=== PATIENT | male | born 1985 | race Caucasian/White ===

== ENCOUNTER 2019-02-13 10:31 | Emergency (ER) | payer OTHER, SELFPAY ==
[2019-02-13 11:03] VITALS: BP 136/89; PULSE 71; RESP 16; TEMP 36.7; O2SAT 98
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
--- NOTE | 2019-02-13 13:32 | DI.VRAD_ITS ---
EXAM: XR Left Shoulder EXAM DATE/TIME: 02/13/2019 11:19 AM CLINICAL HISTORY: 33 years old, male; Pain; Shoulder; Left TECHNIQUE: Imaging protocol: XR Left shoulder. Views: 2 or more views. COMPARISON: No relevant prior studies available. FINDINGS: Bones/joints: Normal. Soft tissues: Normal. IMPRESSION: No evidence for acute abnormality. COMMENT: Preliminary interpretation is based on receipt of 5 image(s). A final report will be issued subsequently. Dictated and Authenticated by: Roro Duque MD. Ordering:LAMIN Calhoun MD
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
== END 2019-02-13 14:00 | disposition home or self-care (01) ==
PROVIDERS: Emergency Provider Student in an Organized Health Care Education/Training Program; PCP Family Medicine
DX: S43.402A Unspecified sprain of left shoulder joint, initial encounter (principal); V11.0XXA Pedal cycle driver injured in collision with other pedal cycle in nontraffic accident, initial encounter
CPT/HCPCS: 99283; 73030; 99282

== ENCOUNTER 2020-04-20 14:53 | Emergency (ER) | payer MEDICAID, SELFPAY ==
[2020-04-20 14:56] VITALS: BP 141/98; PULSE 82; TEMP 36.9; O2SAT 97
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
[2020-04-20] MEDS: Ibuprofen 600 MG TAB PO (15:43)
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
== END 2020-04-20 17:08 | disposition home or self-care (01) ==
PROVIDERS: Emergency Provider Physician Assistant; PCP Family Medicine
DX: S20.221A Contusion of right back wall of thorax, initial encounter (principal); V18.0XXA Pedal cycle driver injured in noncollision transport accident in nontraffic accident, initial encounter; Y93.55 Activity, bike riding; R91.1 Solitary pulmonary nodule
CPT/HCPCS: 71250; 99284; L3650

== ENCOUNTER 2020-08-17 12:54 | Emergency (ER) | payer MEDICAID, SELFPAY ==
[2020-08-17 13:00] VITALS: BP 148/90; PULSE 84; RESP 16; TEMP 36.6; O2SAT 97
--- NOTE | 2020-08-17 13:00 | DI.RAD_ITS ---
EXAM: XR WRIST LT COMP NAVICULAR CLINICAL HISTORY: L thumb palmar pain. TECHNIQUE: 2D digital imaging was performed. Four views including navicular view were performed. COMPARISON: No exams were available for comparison FINDINGS: BONES: No acute fracture is present. No bony destructive lesion is seen. JOINTS: The carpal bones are normally aligned. SOFT TISSUE: Normal. IMPRESSION: Unremarkable radiographs of the left wrist. DATA REPOSITORY: RADIATION DOSE DELIVERED:
--- NOTE | 2020-08-17 13:11 | W.ED.GENAD ---
Discharge Plan Discharge Details Chief Complaint: Orthopedic Primary Care Provider: Yamileth Valles ED Provider: Lorenzo Sexton Home Meds and New Rx's Prescriptions: No Action ibuprofen 800 MG tablet 800 mg PO Q8H PRNQty: 90 RF: 0 Medical Decision Making 35-year-old male presents after striking a tree with his free left hand while snowboarding yesterday. He developed palmar base of the left thumb swelling overnight that did respond to ice. 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 Given pain in the anatomical snuffbox and with axial loading of the thumb, patient is referred for radiographs of the hand including navicular views. No evidence of bony fracture seen. Must exclude a subtle underlying scaphoid injury and therefore we have placed him in a thumb spica with follow-up in 1 week's time. He understands homecare and return precautions. HPI General Mode of arrival: ambulatory. Date/Time Provider Initiated Documentation: 08/17/20 12:59. Limitations to Documentation: no limitations. Information obtained by: patient. History of Present Illness 35 year old M presents to the emergency department with the chief complaint of Left hand pain after striking a tree, described as moderate, Quality is described as dull, and is localized to the left and upper extremity. Patient reports no radiation. Patient started experiencing this hour(s) and it has been constant. No relieving factors improve symptom(s), No exacerbating factors reported . Patient did receive the following treatments prior to arrival, other (Cold therapy) Related Data Home Medications Medication Instructions Recorded Confirmed ibuprofen 800 mg PO Q8H PRN #90 tab 01/28/17 04/20/20 Allergies Allergy/AdvReac Type Severity Reaction Status Date / Time tramadol AdvReac Severe seizures Unverified 04/20/20 15:09 clarithromycin [From Biaxin] AdvReac Mild Unverified 04/20/20 15:09 diclofenac AdvReac Mild Unverified 04/20/20 15:09 General Stated Complaint: Orthopedic MAURICIO: 4 Review of Systems Narrative: GEN: awake, alert, oriented 3. Pleasant, well groomed, interactive. HEAD: Normocephalic, atraumatic ENT: No neck mass, external ear exam unremarkable EYES: PERRL, EOMI EXT: Range of motion intact bilaterally but limited by pain left keno writer / runner strength. Base of left thumb tender to palpation. Pain with resisted supination, pain with axial loading of the thumb. Neuro: Grossly normal neurologic exam, conversant, interactive. Psych: Speech fluent, thoughts congruent, affect normal [facility] Medical History (Updated 05/21/20 @ 00:01 by REINA PRETTY) Separation of left acromioclavicular joint, type 1 (02/12/19) Surgical History (Updated 04/22/18 @ 14:37 by [employer] MD) Fracture, Open Treatment tib fib Tonsillectomy Vasectomy Has also had three procedures since. Social History Smoking/Tobacco Use Status: Former Tobacco Use Smoking risk assessment performed?: Yes Alcohol Intake: current Alcohol Intake frequency: holidays/special occasions only Drug use: Occasionally Substance use type: marijuana Current gender identity: male Do you feel safe at home: Yes Do you feel safe in your relationship?: Yes Course Vital Signs Vital signs: Vital Signs Temperature 36.6 C 08/17/20 13:00 Pulse 84 08/17/20 13:00 Respiratory Rate 16 08/17/20 13:00 Blood Pressure 148/90 H 08/17/20 13:00 Pulse Oximetry 97 08/17/20 13:00 Temperature 36.6 C 08/17/20 13:00 Temperature Source Temporal Artery Scan 08/17/20 13:00 Pulse 84 08/17/20 13:00 Respiratory Rate 16 08/17/20 13:00 Respiratory Effort Non-Labored 08/17/20 13:06 Blood Pressure 148/90 H 08/17/20 13:00 Blood Pressure Position Sitting 08/17/20 13:00 Pulse Oximetry 97 08/17/20 13:00 Oxygen Delivery Method Room Air 08/17/20 13:00 Oxygen Flow Rate 0 08/17/20 13:00 Pain Level 7 08/17/20 13:07
== END 2020-08-17 13:50 | disposition home or self-care (01) ==
PROVIDERS: Emergency Provider Emergency Medicine; PCP Family Medicine
DX: S60.012A Contusion of left thumb without damage to nail, initial encounter (principal); V00.312A Snowboarder colliding with stationary object, initial encounter; Y93.23 Activity, snow (alpine) (downhill) skiing, snowboarding, sledding, tobogganing and snow tubing
CPT/HCPCS: 29125; 99283; 73110; 99281

== ENCOUNTER 2020-11-19 10:40 | Emergency (ER) | payer MEDICAID, SELFPAY ==
[2020-11-19] VITALS (35 sets, daily range): BP systolic 121–140; BP diastolic 78–112; PULSE 56–107; RESP 10–22; TEMP 36.5; O2SAT 96–100
--- NOTE | 2020-11-19 10:30 | RT.EKG_ITS ---
APPROVED REPORT Exam: Resting ECG Reason for Exam: dizzy,nausea Patient Location: E HR:74 bpm ECG Measurements Heart Rate 74 AXIS HI 109 P 55 QRSd 95 QRS 54 QT 360 T 64 QTc 400 Conclusion Sinus rhythm...normal P axis, V-rate 60- 99
--- NOTE | 2020-11-19 10:49 | ED.GENADUL_ITS ---
Discharge Plan Disposition Patient Disposition: HOME Condition: Stable Discharge Details Clinical Impression: Nausea, Dizziness Primary Care Provider: Yamileth Valles ED Provider: Dereck Lilly Home Meds and New Rx's Prescriptions: New ondansetron HCl [Zofran] 4 mg tablet 4 mg PO Q8H PRNQty: 10 RF: 0 meclizine 25 mg tablet 25 mg PO TID PRN (Reason: dizziness) Qty: 14 RF: 0 Continued ibuprofen 800 MG tablet 800 mg PO Q8H PRNQty: 90 RF: 0 Discharge Instructions Instructions: Acute Nausea and Vomiting (ED), Dizziness (ED) Additional Instructions: Work-up in the ER has been unremarkable for any obvious emergent process and you have responded nicely to both Zofran and meclizine. Zofran and meclizine is being prescribed to you, take as directed. Rest, plenty of fluids to avoid dehydration. Please watch for new or worsening symptoms and return to the ER for any concerns. Lastly, I do recommend that you reach out to your primary care provider tomorrow to discuss your ongoing symptoms, ER evaluation, and need for outpatient reevaluation. Medical Decision Making This is a 35-year-old male, denies significant past sickle history, presenting to the ER today with various complaints. Clinically he appears well, nontoxic is neurologically intact. He does state that he hit himself in the head using a pry bar approximately 1 month ago, and has felt ill for the last 9 days after receiving the J&J Covid vaccination. Differential this point is wide but given his dizziness, headache, etc., I do believe obtaining CT imaging of his head, neck, CTA, for further evaluation of potential central venous thrombosis is re asonable. In the meantime will obtain IV access, routine laboratory values, single troponin, EKG, chest x-ray. Will give IV fluid, IV Zofran, and 25 p.o. meclizine and reassess. No evidence of dental infection or abscess, no clear indication for antibiotic Laboratory values are all unremarkable for obvious emergent process. Upon reevaluation patient is resting comfortably, remains neurologically intact. Was witnessed ambulating steadily to the restroom multiple times. He reports that both his nausea and dizziness are dramatically improved but not resolved. Will p.o. challenge. Awaiting imaging Chest x-ray, CTA brain and neck are read by radiology as negative Discussed laboratory values and imaging with patient. He is relieved. Reports that his nausea and dizziness continue improved but have not resolved completely. He was able to eat a turkey sandwich without difficulty. At this point patient has no additional questions or concerns and he is comfortable discharge. I will provide a prescription for meclizine and Zofran. He was encouraged to return to the ER for new or worsening symptoms. Lastly he will contact his primary care provider tomorrow to discuss his ongoing symptoms, and if they persist potential need for outpatient MRI and/or referral to neurology. Medical Records Medical records reviewed: Yes I reviewed the patient's medical records. Lab Data Lab results reviewed: Yes I reviewed the patient's lab results. Labs: Laboratory Tests Range/Units 11/19/20 11/19/20 11/19/20 10:57 10:57 10:57 WBC (4.4-10.8) 10^3/uL 8.92 RBC (4.36-5.78) 10^6/uL 5.22 Hgb (13.5-17.5) g/dL 16.7 Hct (40.0-50.0) % 48.9 MCV (80-95) fL 93.7 MCH (27.0-33.0) pg 32.0 MCHC (32.0-36.0) % 34.2 RDW (11.8-14.1) % 12.5 Plt Count (130-400) 10^3/uL 311 MPV (8.0-11.0) fL 9.9 Immature Gran % 0.4 Neutrophils % 56.8 Lymphocytes % 30.6 Monocytes % 8.7 Eosinophils % 2.9 Basophils % 0.6 Nucleated RBC % % 0 Absolute Neutrophils (1.2-6.7) 10^3/uL 5.06 Absolute Lymphocytes (1.2-3.4) 10^3/uL 2.73 Absolute Monocytes (0.1-0.8) 10^3/uL 0.78 Absolute Eosinophils (0.0-0.7) 10^3/uL 0.26 Absolute Basophils (0.0-0.2) 10^3/uL 0.05 PT (9.3-11.0) sec 10.5 INR (0.9-1.1) 1.0 APTT (21.0-27.5) sec 24.4 Sodium (136-145) mmol/L 140 Potassium (3.5-5.1) mmol/L 4.1 Chloride (98-107) mmol/L 104 Carbon Dioxide (21.0-32.0) mmol/L 25.8 Anion Gap (3-11) mmol/L 10.2 BUN (7-18) mg/dL 19 H Creatinine (0.70-1.30) mg/dL 1.2 Estimated GFR/1.73 m2 (mL/min/1.73m2) >= 60.00 Glucose (74-106) mg/dL 111 H Calcium (8.5-10.1) mg/dL 9.4 Magnesium (1.8-2.4) mg/dL 1.8 Total Bilirubin (0.2-1.0) mg/dL 0.6 AST (15-37) U/L 19 ALT (16-63) U/L 37 Alkaline Phosphatase (46-116) U/L 78 Troponin I (<0.06) ng/mL < 0.05 Total Protein (6.4-8.2) g/dL 8.2 Albumin (3.4-5.0) g/dL 4.2 TSH (0.36-3.74) uIU/mL 1.29 Urine Color (Yellow) Urine Clarity (Clear) Urine pH (5-8) Ur Specific Dougherty (1.005-1.025) Urine Protein (Negative) mg/dL Urine Ketones (Negative) mg/dL Urine Blood (Negative) Urine Nitrite (Negative) Urine Bilirubin (Negative) Urine Urobilinogen (Up TO 0.2) EU/dL Ur Leukocyte Esterase (Negative) Urine Glucose (Negative) mg/dL Urine Opiates Screen (Negative) Urine Methadone Screen (Negative) Ur Barbiturates Screen (Negative) Ur Tricyclics Screen (Negative) Ur Amphetamines Screen (Negative) U Benzodiazepines Scrn (Negative) Urine Cocaine Screen (Negative) Ur THC Screen (Negative) Range/Units 11/19/20 11/19/20 11:50 11:50 WBC (4.4-10.8) 10^3/uL RBC (4.36-5.78) 10^6/uL Hgb (13.5-17.5) g/dL Hct (40.0-50.0) % MCV (80-95) fL MCH (27.0-33.0) pg MCHC (32.0-36.0) % RDW (11.8-14.1) % Plt Count (130-400) 10^3/uL MPV (8.0-11.0) fL Immature Gran % Neutrophils % Lymphocytes % Monocytes % Eosinophils % Basophils % Nucleated RBC % % Absolute Neutrophils (1.2-6.7) 10^3/uL Absolute Lymphocytes (1.2-3.4) 10^3/uL Absolute Monocytes (0.1-0.8) 10^3/uL Absolute Eosinophils (0.0-0.7) 10^3/uL Absolute Basophils (0.0-0.2) 10^3/uL PT (9.3-11.0) sec INR (0.9-1.1) APTT (21.0-27.5) sec Sodium (136-145) mmol/L Potassium (3.5-5.1) mmol/L Chloride (98-107) mmol/L Carbon Dioxide (21.0-32.0) mmol/L Anion Gap (3-11) mmol/L BUN (7-18) mg/dL Creatinine (0.70-1.30) mg/dL Estimated GFR/1.73 m2 (mL/min/1.73m2) Glucose (74-106) mg/dL Calcium (8.5-10.1) mg/dL Magnesium (1.8-2.4) mg/dL Total Bilirubin (0.2-1.0) mg/dL AST (15-37) U/L ALT (16-63) U/L Alkaline Phosphatase (46-116) U/L Troponin I (<0.06) ng/mL Total Protein (6.4-8.2) g/dL Albumin (3.4-5.0) g/dL TSH (0.36-3.74) uIU/mL Urine Color (Yellow) Yellow Urine Clarity (Clear) Clear Urine pH (5-8) 6.0 Ur Specific Dougherty (1.005-1.025) 1.015 Urine Protein (Negative) mg/dL Negative Urine Ketones (Negative) mg/dL Negative Urine Blood (Negative) Negative Urine Nitrite (Negative) Negative Urine Bilirubin (Negative) Negative Urine Urobilinogen (Up TO 0.2) EU/dL 0.2 Ur Leukocyte Esterase (Negative) Negative Urine Glucose (Negative) mg/dL Negative Urine Opiates Screen (Negative) Negative Urine Methadone Screen (Negative) Negative Ur Barbiturates Screen (Negative) Negative Ur Tricyclics Screen (Negative) Negative Ur Amphetamines Screen (Negative) Negative U Benzodiazepines Scrn (Negative) Negative Urine Cocaine Screen (Negative) Negative Ur THC Screen (Negative) Positive A ECG Data Attestation: I personally reviewed and interpreted this ECG (s) as follows: Interpretation: Please see official report by Dr. Sexton. Sinus rhythm, ventricular rate 74. No STEMI. HPI General Mode of arrival: ambulatory . Date/Time Provider Initiated Documentation: 11/19/20 10:40 . Limitations to Documentation: no limitations . Information obtained by: patient . HPI Narrative: This is a 35-year-old male, denies significant past medical history presenting to the ER today with multiple. First he states that approximately 1 month ago he accidentally hit himself in the head with a pry bar, felt as though he likely had a concussion, symptoms lasted for approximately 3 days and then he was back to baseline. He never sought any medical attention. Subsequently 9 days ago he received the J&J Covid vaccination. He states that almost immediately after the vaccine he developed multiple symptoms. He states that in the past he had a reaction to the flu vaccine twice which he then decided never to get the flu vaccine again. He questions if his symptoms now could be a reaction to the vaccine versus his potential fear of reaction to the vaccine in potentially psychosomatic. He reports a dull global headache, occasional blurry vision, chronic neck discomfort from his scoliosis, fever 4 days ago, T-max between 101 101, abdominal cramping, nausea, vomiting, diarrhea, occasional paresthesias to his hands and feet. He reports dizziness, like the room is spinning, made worse with movement of his eyes or head. The dizziness has not made him fall. He states that he feels more forgetful than usual. He denies cough, shortness of breath, dysuria, pain or swelling in his legs. He states that he also has a chronic tooth problem which has been bothering him lately in general. He states that he has taken [id number] Tylenol for his symptoms as well as drinking increased Gatorade. Because of his overall nausea and vomiting, he has had decreased p.o. intake and is concerned about dehydration. Related Data Home Medications Medication Instructions Recorded Confirmed ibuprofen 800 mg PO Q8H PRN #90 tab 01/28/11/19/20 meclizine 25 mg PO TID PRN #14 tab 11/19/20 ondansetron HCl [Zofran] 4 mg PO Q8H PRN #10 tab 11/19/20 Previous Rx's Medication Instructions Recorded meclizine 25 mg PO TID PRN #14 tab 11/19/20 ondansetron HCl [Zofran] 4 mg PO Q8H PRN #10 tab 11/19/20 Allergies Allergy/AdvReac Type Severity Reaction Status Date / Time tramadol AdvReac Severe seizures Unverified 11/19/20 10:51 clarithromycin [From Biaxin] AdvReac Mild Unverified 11/19/20 10:51 diclofenac AdvReac Mild Unverified 11/19/20 10:51 General MAURICIO: 4 Review of Systems Constitutional Constitutional: Reports fatigue, Reports fever(s), Reports headache(s) and Denies weakness Eyes Eyes: Reports blurry vision ENT Ears, Nose, Mouth, and Throat: Reports headache(s), Reports neck pain and Denies sore throat Cardiovascular Cardiovascular: Denies chest pain and Denies dyspnea Respiratory Respiratory: Denies cough and Denies dyspnea Gastrointestinal Gastrointestinal: Reports abdominal pain, Reports constipation, Reports diarrhea, Reports nausea and Reports vomiting Genitourinary Genitourinary: Denies dysuria Musculoskeletal Musculoskeletal: Denies arthralgias, Reports neck pain, Denies numbness and Reports tingling Integumentary/Breasts Skin/Breast: Denies rash Neurologic Neurologic: Reports headache(s), Denies numbness, Reports tingling and Denies weakness Endocrine Endocrine: Reports fatigue Hematologic/Lymphatic Hematologic/Lymphatic: Denies easy bleeding and Denies easy bruising [facility] Medical History Separation of left acromioclavicular joint, type 1 (02/12/19) Surgical History Fracture, Open Treatment tib fib Tonsillectomy Vasectomy Has also had three procedures since. Social History Smoking/Tobacco Use Status: Former Tobacco Use Smoking risk assessment performed?: Yes Alcohol Intake: current Alcohol Intake frequency: holidays/special occasions only Drug use: Daily Substance use type: marijuana Current gender identity: male Do you feel safe at home: Yes Do you feel safe in your relationship?: Yes Exam Const General: cooperative, healthy appearing, comfortable and no acute distress Orientation: alert, awake and oriented x3 HENMT Head: normal to inspection, normocephalic and atraumatic Ears: external ears normal, TM's normal bilaterally and EAC's normal Face and sinus: normal facial exam Mouth: moist mucous membranes Throat: posterior oropharynx normal Eyes General: appearance normal, both eyes and all related structures Alignment and Position: alignment normal Periorbital: periorbital findings normal Eyelids: eyelids normal Conjunctivae: conjunctivae normal Sclera: sclerae normal Cornea: corneas normal Pupils: PERRL EOM: EOM intact bilaterally Direct ophthalmoscopy: normal light reflex Neck Neck: normal visual inspection, full ROM, no meningeal signs, trachea midline, supple and nontender Resp Effort & Inspection: normal respiratory effort and able to speak in complete sentences Auscultation: clear to auscultation bilaterally Cardio Rate: regular rate Rhythm: regular rhythm GI Inspection: normal to inspection Palpation: soft, not firm, no guarding, no pulsatile masses and nontender Auscultation: normal bowel sounds Back/Spine/Pelvis Back: No back tenderness Skin General skin exam: no rashes or lesions noted Neuro General: patient alert, patient awake, patient oriented x3, moves all e xtremities and no focal motor deficits Cranial Nerves: CN's II-XI intact bilaterally Cognition: normal cognition Speech: speech normal Gait: normal gait Motor: muscle tone normal throughout, strength 5/5 throughout, no movement abnormalities noted and no fasciculations Sensory Exam: no sensory deficits noted Coordination: Does not sway with eyes open Extrem General: normal to inspection, full ROM, capillary refill normal, no pedal edema and no calf tenderness Psych Appearance: grossly normal Mental Status: mental status grossly normal
[2020-11-19] MEDS: Normal Saline 1,000 ML 1000 ML IV (11:00)
--- NOTE | 2020-11-19 11:15 | DI.CT_ITS ---
Exam(s) CT BRAIN NECK CTA EXAM: CT BRAIN NECK CTA CLINICAL HISTORY: PARK/Dizzy, after covid vaccine. TECHNIQUE: Imaging Protocol: Axial CT angiography was performed with multi-slice acquisition and mu lti-planar and/or 3D reconstructions. CONTRAST MATERIAL: Intravenous: Omnipaque 350 Contrast volume:structured data in ml COMPARISON: No exams were available for comparison FINDINGS: CTA Neck W: Aortic arch anatomy: The aortic arch anatomy is conventional. Anterior circulation: Common carotid arteries are nicely patent with no evidence of significant stenosis nor obvious plaque in these vessels. Also no evidence of significant plaque at the carotid bifurcation and proximal in ternal carotid arteries on either side. Both internal carotid arteries exhibit normal diameters in t he neck and skull base-carotid canals. Posterior circulation: And both vertebral arteries originated conventional fashion off of the subclavian arteries and both v ertebral arteries exhibit normal and equal diameters in the foramen transversarium with no evidence o f intraluminal thrombus nor dissection. Both vertebral arteries contribute to the formation of the b asilar artery at the skull base. CTA Brain W: Anterior circulation: Both internal carotid arteries exhibit normal luminal diameters in the skull base-carotid canals as w ell as within the cavernous sinuses and the supraclinoid aspects of these vessels are patent and raina neurysmal. Both middle cerebral arteries are patent and demonstrated to be patent out to the sylvian fissure branches. No intraluminal thrombus nor aneurysm is evident. Both A1 segments are patent as are both anterior cerebral arteries. There is no evidence of aneurysm at the level of the anterior communicating artery. Posterior circulation: Basilar artery is formed the skull base by contribution from equal sized bilateral vertebral arteries . Basilar artery is sends in the midline with normal luminal diameter and distally gives off patent bilateral superior cerebellar arteries. Above this level basilar artery terminates as patent posteri or cerebral arteries.. There is no evidence of aneurysm of the tip of the basilar artery nor elsewhe re in the [id number]. CT BRAIN: There is no evidence of intracranial hemorrhage, mass effect, or shift of midline structures. There are no extra-axial fluid collections. Ventricles are not enlarged or shifted and there is no blood w ithin the ventricular system nor within the basal cisterns. There are no ring enhancing lesions in t he brain and no abnormal meningeal enhancement. IMPRESSION: 1. No evidence of significant atherosclerotic disease in the carotid arteries in the neck. No signif icant stenosis. Vertebral arteries are also patent. 2. Patent intracranial vessels. No intraluminal thrombus. No aneurysms evident. 3. There are no ring enhancing lesions in the brain nor abnormal meningeal enhancement. RADIATION DOSE DELIVERED: 1,856.64mGy.cm Total DLP DATA REPOSITORY: All CT scans at this facility are submitted to the National Radiology Data Registry (NRDR) Dose Index Registry (DIR) with the [employer] ([employer]). RADIATION OPTIMIZATION: All CT scans at this facility use at least one of these dose optimization te chniques: automated exposure control; mA and/or kV adjustment per patient size (includes targeted exa ms where dose is matched to clinical indication); or iterative reconstruction.
--- NOTE | 2020-11-19 11:15 | DI.RAD_ITS ---
Exam(s) XR CHEST 2V PA LATERAL EXAM: XR CHEST 2V PA LATERAL CLINICAL HISTORY: dizzy. TECHNIQUE: 2D digital imaging was performed. COMPARISON: CR CHEST 2 VIEWS PA,LAT from 03/19/2015 FINDINGS: Heart size is normal. The mediastinum is not widened. Some hyperinflation is again noted but there are no new infiltrates nor pleural effusions. No pulmon pacheco edema. Thoracolumbar scoliosis is again noted. IMPRESSION: No acute pulmonary findings.No significant change compared to March 2015. DATA REPOSITORY: RADIATION DOSE DELIVERED:
[2020-11-19 11:25] LABS: Abs Immature Grans 0.04 10^3/uL (0.0-0.06); Absolute Basophil Count 0.05 10^3/uL (0.0-0.2); Absolute Eosinophil Count 0.26 10^3/uL (0.0-0.7); Absolute Lymphocyte Count 2.73 10^3/uL (1.2-3.4); Absolute Monocyte Count 0.78 10^3/uL (0.1-0.8); Absolute Neutrophil Count 5.06 10^3/uL (1.2-6.7); Basophils % 0.6; Eosinophils % 2.9; HCT 48.9 % (40.0-50.0); HGB 16.7 g/dL (13.5-17.5); Immature Grans % 0.4; Lymphocytes % 30.6; MCHC 34.2 % (32.0-36.0); MCV 93.7 fL (80-95); MPV 9.9 fL (8.0-11.0); Monocytes % 8.7; Neutrophils % 56.8; Nucleated RBC 0 %; Platelet Count 311 10^3/uL (130-400); RBC 5.22 10^6/uL (4.36-5.78); RDW 12.5 % (11.8-14.1); RDW-SD 43.2 fL; WBC 8.92 10^3/uL (4.4-10.8)
[2020-11-19] MEDS: Meclizine 25 MG TAB PO (11:27)
[2020-11-19] MEDS: Ondansetron 4 MG/2 ML VIAL IVP (11:27)
[2020-11-19 11:39] LABS: PTT Activated 24.4 sec (21.0-27.5); Prothrombin Time 10.5 sec (9.3-11.0)
[2020-11-19 11:46] LABS: ALT 37 U/L (16-63); AST 19 U/L (15-37); Albumin 4.2 g/dL (3.4-5.0); Alkaline Phosphatase 78 U/L (46-116); Anion Gap 10.2 mmol/L (3-11); BUN 19 mg/dL (7-18); Bilirubin, Total 0.6 mg/dL (0.2-1.0); CO2 25.8 mmol/L (21.0-32.0); CREATININE 1.2 mg/dL (0.70-1.30); Calcium 9.4 mg/dL (8.5-10.1); Chloride 104 mmol/L (98-107); Glucose 111 mg/dL (74-106); Magnesium 1.8 mg/dL (1.8-2.4); Potassium 4.1 mmol/L (3.5-5.1); Sodium 140 mmol/L (136-145); TSH 1.29 uIU/mL (0.36-3.74); Total Protein 8.2 g/dL (6.4-8.2)
[2020-11-19 11:47] LABS: Troponin I < 0.05 ng/mL (<0.06)
[2020-11-19 12:06] LABS: Bilirubin Negative (Negative); Blood Negative (Negative); Clarity Clear (Clear); Glucose Negative (Negative); Ketones Negative (Negative); Leukocyte Esterase Negative (Negative); Nitrite Negative (Negative); Specific Gravity 1.015 (1.005-1.025); Urobilinogen 0.2 EU/dL (Up TO 0.2)
[2020-11-19 12:22] LABS: *AMPHETAMINES SCREEN URINE Negative (Negative); *BARBITURATES SCREEN URINE Negative (Negative); *BENZODIAZEPINES SCREEN URINE Negative (Negative); Cannabinoids THC Positive (Negative); Cocaine Screen,Urine Negative (Negative); METHADONE URINE SCREEN Negative (Negative); OPIATES URINE SCREEN Negative (Negative); Tricyclic Antidepressants Negative (Negative)
[2020-11-19] MEDS: Omnipaque 350 MG/ML 100 ML BTL IV (12:32)
[2020-11-19] MEDS: Normal Saline - Diluent 50 ML VIAL IV (12:33)
[2020-11-19] MEDS: Normal Saline Flush 10 ML SYR IVP (12:34)
--- NOTE | 2020-11-19 13:38 | DI.VRAD_ITS ---
PROCEDURE INFORMATION: Exam: XR Chest Exam date and time: 11/19/2020 12:42 PM Age: 35 years old Clinical indication: Other: Recent j\T\j vaccine - dizziness TECHNIQUE: Imaging protocol: XR of the chest. Views: 2 views. COMPARISON: CT CHEST WO 04/20/2020 3:59 PM FINDINGS: Lungs: Unremarkable. No consolidation. Pleural spaces: Unremarkable. No pleural effusion. No pneumothorax. Heart/Mediastinum: Unremarkable. No cardiomegaly. Bones/joints: Unremarkable. IMPRESSION: No acute findings. Dictated and Authenticated by: Guy Aleman MD. Ordering:JOEL Harden MD
--- NOTE | 2020-11-19 13:38 | DI.VRAD_ITS ---
PROCEDURE INFORMATION: Exam: CT Angiography Head With Contrast, Arteriography Exam date and time: 11/19/2020 11:18 AM Age: 35 years old Clinical indication: Dizziness and giddiness; Patient HX: PT received j\T\j vaccine on 11/10. C/O dizziness and PARK. TECHNIQUE: Imaging protocol: Computed tomography angiography of the head with contrast. Exam focused on the arteries. 3D rendering (Not supervised by radiologist): MIP and/or 3D reconstructed images were created by the technologist. Radiation optimization: All CT scans at this facility use at least one of these dose optimization techniques: automated exposure control; mA and/or kV adjustment per patient size (includes targeted exams where dose is matched to clinical indication); or iterative reconstruction. Contrast material: OMNIPAQUE 350; Contrast volume: 85 ml; Contrast route: INTRAVENOUS (IV); COMPARISON: CT HEAD WITH/WITHOUT CONTRAST 02/16/2016 10:50 AM FINDINGS: ANTERIOR CIRCULATION: Right internal carotid artery: Unremarkable. Intracranial segment is patent with no significant stenosis. No aneurysm. Right middle cerebral artery: Unremarkable. No occlusion or significant stenosis. No aneurysm. Right anterior cerebral artery: Unremarkable. No occlusion or significant stenosis. No aneurysm. Left internal carotid artery: Unremarkable. Intracranial segment is patent with no significant stenosis. No aneurysm. Left middle cerebral artery: Unremarkable. No occlusion or significant stenosis. No aneurysm. Left anterior cerebral artery: Unremarkable. No occlusion or significant stenosis. No aneurysm. POSTERIOR CIRCULATION: Right vertebral artery: Unremarkable. No occlusion or significant stenosis. No aneurysm. Left vertebral artery: Unremarkable. No occlusion or significant stenosis. No aneurysm. Basilar artery: Unremarkable. No occlusion or significant stenosis. No aneurysm. Right posterior cerebral artery: Unremarkable. No occlusion or significant stenosis. No aneurysm. There is prominent right posterior communicating artery. Left posterior cerebral artery: Unremarkable. No occlusion or significant stenosis. No aneurysm. Brain: No definite mass, mass effect, or midline shift. Cerebral ventricles: No ventriculomegaly. Paranasal sinuses: There is mucous retention cyst or polyp in the floor of the left maxillary sinus. There is trace mucosal thickening in the anterior right ethmoidal air cells. Bones/joints: Unremarkable. No acute fracture. Soft tissues: Unremarkable. IMPRESSION: No large vessel stenosis or occlusion. PROCEDURE INFORMATION: Exam: CT Angiography Neck With Contrast Exam date and time: 11/19/2020 11:18 AM Age: 35 years old Clinical indication: Dizziness and giddiness; Patient HX: PT received j\T\j vaccine on 11/10. C/O dizziness and PARK. TECHNIQUE: Imaging protocol: Computed tomography angiography of the neck with contrast. 3D rendering (Not supervised by radiologist): MIP and/or 3D reconstructed images were created by the technologist. Radiation optimization: All CT scans at this facility use at least one of these dose optimization techniques: automated exposure control; mA and/or kV adjustment per patient size (includes targeted exams where dose is matched to clinical indication); or iterative reconstruction. Contrast material: OMNIPAQUE 350; Contrast volume: 85 ml; Contrast route: INTRAVENOUS (IV); COMPARISON: CT HEAD WITH/WITHOUT CONTRAST 02/16/2016 10:50 AM FINDINGS: Right common carotid artery: No stenosis. No dissection or occlusion. Right internal carotid artery: No stenosis of the extracranial segment. No dissection or occlusion. Right external carotid artery: No occlusion or stenosis of the origin. Right vertebral artery: No stenosis. No dissection or occlusion. Left common carotid artery: No stenosis. No dissection or occlusion. Left internal carotid artery: No stenosis of the extracranial segment. No dissection or occlusion. Left external carotid artery: No occlusion or stenosis of the origin. Left vertebral artery: No stenosis. No dissection or occlusion. Bones/joints: Mild degenerative changes in the cervical spine with mild loss of disc height at C3-C4 and C4-C5. Soft tissues: Normal. No significant soft tissue swelling. IMPRESSION: No stenosis or occlusion. REFERENCES: NASCET CRITERIA. The degree of internal carotid artery stenosis is based on NASCET criteria. Normal is no stenosis. Mild is less than 50% stenosis. Moderate is 50-69% stenosis. Severe is 70% to 99% stenosis. Total occlusion is no detectable patent lumen. Dictated and Authenticated by: Guy Aleman MD. Ordering:JOEL Harden MD
== END 2020-11-19 14:37 | disposition home or self-care (01) ==
PROVIDERS: Emergency Provider Physician Assistant; PCP Family Medicine
DX: R11.0 Nausea (principal); R42 Dizziness and giddiness
CPT/HCPCS: 70496; 70498; 80053; 80307; 93005; 96361; 96374; 99285; 71046; 81003; 83735; 84443; 84484; 85025; 85610; 85730; 93010; 99283; J2405; J3490

== ENCOUNTER 2021-01-02 09:43 | Emergency (ER) | payer MEDICAID, SELFPAY ==
[2021-01-02 09:48] VITALS: BP 138/85; PULSE 87; RESP 18; TEMP 36.4; O2SAT 95
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
== END 2021-01-02 10:07 | disposition home or self-care (01) ==
PROVIDERS: Emergency Provider Physician Assistant; PCP Family Medicine
DX: S60.222A Contusion of left hand, initial encounter (principal); W22.8XXA Striking against or struck by other objects, initial encounter; R20.2 Paresthesia of skin
CPT/HCPCS: 99283

== ENCOUNTER 2021-03-10 15:37 | Emergency (ER) | payer MEDICAID, SELFPAY ==
[2021-03-10 15:47] VITALS: BP 157/88; PULSE 76; RESP 18; TEMP 36.9; O2SAT 96
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
--- NOTE | 2021-03-10 16:30 | DI.CT_ITS ---
Exam(s) CT CHEST/ABD/PEL W EXAM: CT CHEST/ABD/PEL W CLINICAL HISTORY: right thoracic pain, RUQ pain, RLQ pain, fall off. TECHNIQUE: Imaging Protocol: Axial computed tomography images with coronal and sagittal reformatted images were created and reviewed CONTRAST MATERIAL: Intravenous: Omnipaque 350 Contrast volume:100 ml Oral: no COMPARISON: CT CT BRAIN NECK CTA from 11/19/2020 FINDINGS: CHEST: Tracheobronchial tree: Patent where visualized. Mediastinum and Renae: No dominant adenopathy or fluid collection. Pulmonary parenchyma: No consolidation or dominant measurable mass. Pleura: No effusion or pneumothorax. Lymph nodes: Within normal limits. Aorta: Thoracic portion non-dilated. Heart: Normal size. No pericardial effusion. Bones: Scoliosis and degenerative changes.. Unremarkable for age. No lytic or blastic lesions. No visible acute rib or spine fracture. ABDOMEN: Liver: Normal density. No measurable mass. Gallbladder and biliary tract: No radiodense calculus or dilation. Pancreas: Normal density, no abnormal calcifications or inflammatory process. Spleen: Normal. Kidneys: Normal size, contour and axis. No radiodense stones or obstructive uropathy. No masses seen. Adrenal glands: No masses seen. Aorta: Abdominal portion non-dilated. Lymph nodes: Within normal limits. Soft tissues: Unremarkable. PELVIS: Bladder: Symmetric distention, no gross wall thickening. Bowel: No obstruction or bowel wall thickening. Normal appendix. Peritoneal cavity: No ascites, collection or mesenteric inflammatory response. No free air. Bones: Scoliosis and degenerative changes. No fracture. Reproductive organs: Within normal limits. IMPRESSION: No acute abnormality in the chest abdomen or pelvis.. RADIATION DOSE DELIVERED: 975.79mGy.cm Total DLP DATA REPOSITORY: All CT scans at this facility are submitted to the National Radiology Data Registry (NRDR) Dose Index Registry (DIR) with the [employer] (ACR). RADIATION OPTIMIZATION: All CT scans at this facility use at least one of these dose optimization te chniques: automated exposure control; mA and/or kV adjustment per patient size (includes targeted exa ms where dose is matched to clinical indication); or iterative reconstruction.
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
[2021-03-10 17:13] LABS: Abs Immature Grans 0.04 10^3/uL (0.0-0.06); Absolute Basophil Count 0.07 10^3/uL (0.0-0.2); Absolute Eosinophil Count 0.21 10^3/uL (0.0-0.7); Absolute Lymphocyte Count 2.51 10^3/uL (1.2-3.4); Absolute Monocyte Count 0.95 10^3/uL (0.1-0.8); Basophils % 0.7; HCT 44.6 % (40.0-50.0); HGB 14.9 g/dL (13.5-17.5); Immature Grans % 0.4; MCH 32.3 pg (27.0-33.0); MCHC 33.4 % (32.0-36.0); MCV 96.5 fL (80-95); MPV 9.7 fL (8.0-11.0); Monocytes % 9.1; Neutrophils % 63.8; Nucleated RBC 0 %; Platelet Count 283 10^3/uL (130-400); RBC 4.62 10^6/uL (4.36-5.78); RDW 13.5 % (11.8-14.1); RDW-SD 48.3 fL; WBC 10.48 10^3/uL (4.4-10.8)
[2021-03-10] MEDS: fentaNYL 100 MCG/2 ML VIAL 50 MCG IVP (17:16)
[2021-03-10] MEDS: Omnipaque 350 MG/ML 100 ML BTL IJ (17:17)
[2021-03-10] MEDS: Normal Saline Flush 10 ML SYR IVP (17:17)
[2021-03-10 17:23] LABS: ALT 34 U/L (16-63); AST 26 U/L (15-37); Albumin 4.3 g/dL (3.4-5.0); Alkaline Phosphatase 75 U/L (46-116); Anion Gap 9.7 mmol/L (3-11); BUN 18 mg/dL (7-18); Bilirubin, Total 0.6 mg/dL (0.2-1.0); CO2 25.3 mmol/L (21.0-32.0); CREATININE 1.2 mg/dL (0.70-1.30); Calcium 9.3 mg/dL (8.5-10.1); Chloride 105 mmol/L (98-107); Glucose 92 mg/dL (74-106); Sodium 140 mmol/L (136-145); Total Protein 7.9 g/dL (6.4-8.2)
[2021-03-10 17:25] VITALS: BP 161/98; PULSE 70; RESP 16; TEMP 36.7; O2SAT 98
--- NOTE | 2021-03-10 17:25 | DI.VRAD_ITS ---
PROCEDURE INFORMATION: Exam: CT Head Without Contrast Exam date and time: 03/10/2021 4:34 PM Age: 35 years old Clinical indication: Injury or trauma; Fall; Blunt trauma (contusions or hematomas) TECHNIQUE: Imaging protocol: Computed tomography of the head without contrast. COMPARISON: CT BRAIN NECK CTA 11/19/2020 12:24 PM FINDINGS: Brain: Normal. No hemorrhage. Unremarkable white matter. No mass effect. Cerebral ventricles: No ventriculomegaly. Paranasal sinuses: Visualized sinuses are unremarkable. No fluid levels. Mastoid air cells: Visualized mastoid air cells are well aerated. Bones/joints: Unremarkable. No acute fracture. Soft tissues: Unremarkable. IMPRESSION: No acute intracranial abnormality. PROCEDURE INFORMATION: Exam: CT Cervical Spine Without Contrast Exam date and time: 03/10/2021 4:34 PM Age: 35 years old Clinical indication: Injury or trauma; Fall; Blunt trauma (contusions or hematomas) TECHNIQUE: Imaging protocol: Computed tomography images of the cervical spine without contrast. COMPARISON: CT BRAIN NECK CTA 11/19/2020 12:24 PM FINDINGS: Bones/joints: No acute fracture. Normal alignment. Discs/Spinal canal/Neural foramina: No significant disc protrusion. No severe spinal canal stenosis. No significant neural foraminal narrowing. Lungs: Lung apices are normal. Soft tissues: Unremarkable. IMPRESSION: No acute findings. Dictated and Authenticated by: Guy Aleman MD. Ordering:FIONA Simmons MD
--- NOTE | 2021-03-10 17:56 | DI.VRAD_ITS ---
PROCEDURE INFORMATION: Exam: CT Chest With Contrast; Diagnostic Exam date and time: 03/10/2021 4:34 PM Age: 35 years old Clinical indication: Injury or trauma; Fall; Ruq; Blunt trauma (contusions or hematomas) TECHNIQUE: Imaging protocol: Diagnostic computed tomography of the chest with contrast. COMPARISON: CT CHEST WO 04/20/2020 3:59 PM FINDINGS: Lungs: Unremarkable. No consolidation. No masses. Pleural spaces: Unremarkable. No pneumothorax. No pleural effusion. Heart: Unremarkable. No cardiomegaly. No pericardial effusion. Aorta: Unremarkable. No aortic aneurysm. Lymph nodes: Unremarkable. No enlarged lymph nodes. Bones/joints: Unremarkable. No acute fracture. Soft tissues: Unremarkable. IMPRESSION: No evidence of acute traumatic injury of the chest. PROCEDURE INFORMATION: Exam: CT Abdomen And Pelvis With Contrast Exam date and time: 03/10/2021 4:34 PM Age: 35 years old Clinical indication: Injury or trauma; Fall; Ruq; Blunt trauma (contusions or hematomas) TECHNIQUE: Imaging protocol: Computed tomography of the abdomen and pelvis with contrast. COMPARISON: CT CHEST WO 04/20/2020 3:59 PM FINDINGS: Liver: Normal. No mass. Gallbladder and bile ducts: Normal. No calcified stones. No ductal dilation. Pancreas: Normal. No ductal dilation. Spleen: Normal. No splenomegaly. Adrenal glands: Normal. No mass. Kidneys and ureters: Normal. No hydronephrosis. Stomach and bowel: Unremarkable. No obstruction. No mucosal thickening. Appendix: No evidence of appendicitis. Intraperitoneal space: Unremarkable. No free air. No significant fluid collection. Vasculature: Unremarkable. No abdominal aortic aneurysm. Lymph nodes: Unremarkable. No enlarged lymph nodes. Urinary bladder: Unremarkable as visualized. Reproductive: Unremarkable as visualized. Bones/joints: Mild levoscoliosis of lumbar spine centered at L2-L3. Soft tissues: Unremarkable. IMPRESSION: 1. No evidence of acute traumatic injury of the abdomen. 2. Mild levoscoliosis of lumbar spine centered at L2-L3. Dictated and Authenticated by: Huey Felix MD. Ordering:FIONA Simmons MD
[2021-03-10] MEDS: Orphenadrine 60 MG/2 ML VIAL IVP (18:12)
[2021-03-10 18:35] VITALS: BP 161/98; PULSE 70; RESP 16; TEMP 36.7; O2SAT 98
== END 2021-03-10 18:40 | disposition home or self-care (01) ==
PROVIDERS: Emergency Provider Physician Assistant; PCP Family Medicine
DX: S20.221A Contusion of right back wall of thorax, initial encounter (principal); V18.0XXA Pedal cycle driver injured in noncollision transport accident in nontraffic accident, initial encounter; Y93.55 Activity, bike riding
CPT/HCPCS: 36415; 74177; 80053; 86850; 86900; 86901; 96374; 96375; 99285; J2360; 70450; 71260; 72125; 85025; 99284; J3010; J3490

== ENCOUNTER 2021-03-18 09:21 | Emergency (ER) | payer MEDICAID, SELFPAY ==
[2021-03-18] VITALS (34 sets, daily range): BP systolic 118–150; BP diastolic 76–99; PULSE 63–118; RESP 10–21; TEMP 36.8; O2SAT 97–100
--- NOTE | 2021-03-18 09:30 | RT.EKG_ITS ---
APPROVED REPORT Exam: Resting ECG Reason for Exam: dizzy/LOC Patient Location: E HR:105 bpm ECG Measurements Heart Rate 105 AXIS OH 127 P 77 QRSd 87 QRS 83 QT 331 T 17 QTc 438 Conclusion Sinus tachycardia...rate> 99
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
[2021-03-18] MEDS: Normal Saline 1,000 ML 1000 ML IV ×2 (10:14→12:08)
[2021-03-18] MEDS: diazePAM 10 MG/2 ML SYR 5 MG IVP (10:15)
[2021-03-18 10:16] LABS: Abs Immature Grans 0.02 10^3/uL (0.0-0.06); Absolute Basophil Count 0.03 10^3/uL (0.0-0.2); Absolute Eosinophil Count 0.06 10^3/uL (0.0-0.7); Absolute Lymphocyte Count 1.36 10^3/uL (1.2-3.4); Absolute Monocyte Count 0.89 10^3/uL (0.1-0.8); Absolute Neutrophil Count 6.19 10^3/uL (1.2-6.7); Basophils % 0.4; Eosinophils % 0.7; HCT 47.4 % (40.0-50.0); Immature Grans % 0.2; Lymphocytes % 15.9; MCH 32.4 pg (27.0-33.0); MCHC 33.8 % (32.0-36.0); MPV 9.7 fL (8.0-11.0); Monocytes % 10.4; Neutrophils % 72.4; Nucleated RBC 0 %; Platelet Count 277 10^3/uL (130-400); RBC 4.94 10^6/uL (4.36-5.78); RDW 12.7 % (11.8-14.1); RDW-SD 45.1 fL; WBC 8.55 10^3/uL (4.4-10.8)
[2021-03-18 10:32] LABS: ALT 27 U/L (16-63); AST 16 U/L (15-37); Albumin 4.2 g/dL (3.4-5.0); Alkaline Phosphatase 70 U/L (46-116); Anion Gap 8.6 mmol/L (3-11); BUN 17 mg/dL (7-18); Bilirubin, Total 0.3 mg/dL (0.2-1.0); CO2 27.4 mmol/L (21.0-32.0); CREATININE 1.1 mg/dL (0.70-1.30); Chloride 106 mmol/L (98-107); Glucose 114 mg/dL (74-106); Potassium 4.4 mmol/L (3.5-5.1); Sodium 142 mmol/L (136-145); Total Protein 7.7 g/dL (6.4-8.2)
[2021-03-18 10:38] LABS: Troponin I < 0.05 ng/mL (<0.06)
[2021-03-18 10:39] LABS: Magnesium 2.2 mg/dL (1.8-2.4)
[2021-03-18] MEDS: Omnipaque 350 MG/ML 100 ML BTL IJ (11:39)
[2021-03-18] MEDS: Normal Saline Flush 10 ML SYR IVP ×2 (11:45→13:16)
[2021-03-18] MEDS: MORPHine 10 MG/ML VIAL 2 MG IVP (11:46)
[2021-03-18 11:49] LABS: Bilirubin Negative (Negative); Blood Negative (Negative); Clarity Clear (Clear); Glucose Negative (Negative); Ketones Negative (Negative); Leukocyte Esterase Negative (Negative); Nitrite Negative (Negative); Specific Gravity 1.015 (1.005-1.025); Urobilinogen 0.2 EU/dL (Up TO 0.2)
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
[2021-03-18] MEDS: MORPHine 4 MG/ML SYR IVP (13:15)
[2021-03-18] MEDS: predniSONE 40 MG, predniSONE 10 MG 50 MG PO (13:47)
--- NOTE | 2021-03-18 17:11 | NUR.NOTE ---
referral to [facility] for new pcp
== END 2021-03-18 15:10 | disposition home or self-care (01) ==
PROVIDERS: Emergency Provider Emergency Medicine; PCP Family Medicine
DX: M51.26 Other intervertebral disc displacement, lumbar region (principal); R91.8 Other nonspecific abnormal finding of lung field; M51.36 Other intervertebral disc degeneration, lumbar region; R55 Syncope and collapse
CPT/HCPCS: 36415; 74177; 80053; 93005; 96361; 96374; 96375; 96376; 99285; 70450; 71260; 81003; 83735; 84484; 85025; 93010; 99284; J2270; J3360; J3490; J7512

== ENCOUNTER 2021-03-22 15:18 | Emergency (ER) | payer MEDICAID, SELFPAY ==
[2021-03-22 15:25] VITALS: BP 133/101; PULSE 96; RESP 18; O2SAT 97
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
[2021-03-22] MEDS: HYDROmorphone 2 MG/ML VIAL 1 MG IVP (15:51)
[2021-03-22] MEDS: Gadoterate meglumine 20 ML VIAL 10 ML IVP (16:41)
[2021-03-22] MEDS: Normal Saline Flush 10 ML SYR IVP (16:42)
--- NOTE | 2021-03-22 16:55 | DI.MRI_ITS ---
Exam(s) MR LUMBAR SPINE WO/W EXAM: MR LUMBAR SPINE WO/W CLINICAL HISTORY: ?cauda equina, spinal epidural abscess. TECHNIQUE: Multiplanar multisequence MRI was performed. COMPARISON: No exams were available for comparison FINDINGS: MR examination of the lumbosacral spine was performed according to the usual protocol with additional pre and post contrast axial and sagittal T1 fat sat imaging. There is a moderate left convex lumbar scoliosis. There are prominent endplate osteophytes on the ri ght laterally at L2-3. Maira discal vertebral signal changes also noted at L2-3 consistent with disc degeneration, no other significant bony signal abnormality seen. No enhancing lesion identified on post contrast imaging. No significant findings at T12-L1 or L1-2 levels. No disc herniation, central canal spinal stenosis, or neural foraminal stenosis. Unremarkable appearance of the conus medullaris. There is moderate disc bulge at L2-3 without evidence of direct neural impingement. No focal disc he rniation seen. Neural foramina and central spinal canal appear well maintained. No significant findings at L3-4, no evidence of disc herniation, central canal spinal stenosis, or ne ural foraminal stenosis. At L4-5 there is a moderate disc bulge asymmetric to the left, question slight superimposed left late ral disc herniation. There is narrowing of the left neural foramen at L4-5 which may cause impingeme nt of the left L5 nerve root. At L5-S1 there is a mild disc bulge without evidence of disc herniation, central canal spinal stenosi s, or neural foraminal stenosis. IMPRESSION: Prominent left convex lumbar scoliosis as described above. Asymmetric disc bulge versus slight left lateral disc herniation, mild narrowing left neural foramen at L4-5. Please correlate with neurologi c examination. DATA REPOSITORY:
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
== END 2021-03-22 18:18 | disposition home or self-care (01) ==
PROVIDERS: Emergency Provider Emergency Medicine; PCP Family Medicine
DX: M51.26 Other intervertebral disc displacement, lumbar region (principal); R20.0 Anesthesia of skin
CPT/HCPCS: 72158; 96374; 99285; 99284

== ENCOUNTER 2021-04-09 14:15 | Emergency (ER) | payer MEDICAID, SELFPAY ==
[2021-04-09 14:33] VITALS: BP 136/77; PULSE 85; RESP 16; TEMP 36.6; O2SAT 99
--- NOTE | 2021-04-09 15:15 | DI.CT_ITS ---
Exam(s) CT RENAL COLIC WO EXAM: CT RENAL COLIC WO CLINICAL HISTORY: right flank pain. TECHNIQUE: Imaging Protocol: Axial computed tomography images with coronal and sagittal reformatted images were created and reviewed. COMPARISON: CT CT CHEST/ABD/PEL W from 03/18/2021 FINDINGS: ABDOMEN: Lung Bases: Normal where visualized. Liver: Normal density. No measurable mass. Gallbladder and biliary tract: No radiodense calculus or biliary ductal dilation. Pancreas: Normal density, no abnormal calcifications or inflammatory process. Spleen: Normal. Kidneys: Normal size, contour and axis.No radiodense stones or obstructive uropathy. No masses seen. Adrenal glands: No mass is seen. Lymph nodes: Within normal limits. Abdominal Aorta: Abdominal portion non-dilated. Mild atherosclerosis. PELVIS: Bladder:Symmetric distention, no gross wall thickening. Bowel: No obstruction or bowel wall thickening. Appendix is unremarkable. Peritoneal cavity: No ascites, collection or mesenteric inflammatory response. No free air. Reproductive organs: Within normal limits. Bones: Within normal limits. There is a left convex scoliosis. Soft Tissues: Within normal limits. IMPRESSION: 1. No acute abdominal or pelvic process. 2. No evidence of nephrolithiasis or hydronephrosis. RADIATION DOSE DELIVERED: 612.06mGy.cm Total DLP DATA REPOSITORY: All CT scans at this facility are submitted to the National Radiology Data Registry (NRDR) Dose Index Registry (DIR) with the [employer] (ACR). RADIATION OPTIMIZATION: All CT scans at this facility use at least one of these dose optimization te chniques: automated exposure control; mA and/or kV adjustment per patient size (includes targeted exa ms where dose is matched to clinical indication); or iterative reconstruction.
--- NOTE | 2021-04-09 15:28 | ED.GENADUL_ITS ---
Discharge Plan Disposition Patient Disposition: HOME Condition: Stable Discharge Details Clinical Impression: Flank pain Primary Care Provider: Yamileth Valles ED Provider: Mino Orantes Home Meds and New Rx's Prescriptions: Continued ibuprofen 600 mg Tablet 600 mg PO TID PRNRF: 0 cyclobenzaprine 10 mg tablet 10 mg PO TID PRNQty: 20 RF: 0 gabapentin 100 mg capsule 100 mg PO TID Qty: 30 RF: 0 Discharge Instructions Additional Instructions: your blood work and cat scan did not show any emergent findings follow up as scheduled with your primary care provider Friday if you take the oxycodone do not drink alcohol or drive and do not take it with the flexeril return to the emergency department if you feel more ill, have new symptoms such as chest pain or difficulty breathing Medical Decision Making 35 yo male with no chronic medical problems comes in with pain in the right back in the right cva area. He has been dealing with lower back pain since a fall and had an MRI showing he does have disc bulging but no central cord impingement. He has been doing PT and has been feeling somewhat better but today he started to have right sided back pain in the cva area. Denies new falls or trauma, weakness, fevers, chills, chest pain, dyspnea, abdominal pain, difficulty urinating or ivdu. He appears in pain on exam but is stable, he is tender in the right cva area, no overlying erythema, warmth or swelling. Nomidline pain, no abdominal tenderness, no saddle anesthesia and normal sensation and pulses in the legs. I suspect musculoskeletal back pain but given location and it is new will obtain ct renal colic. No abdominal tenderness to suggest surgical pathology such as appendicitis or cholecystitis. No swelling and muscle is soft in the area so doubt compartment syndrome. No findings on exam or history to suggest cauda equina or spinal epidural abscess. WElls low and perc negative so doubt PE and no chest pain/pressure or dyspnea so do not feel acs workup indicated. Normal vascular exam and no upper back pain or other symptoms to suggest dissection patient remains stable and feels better has no new symptoms. Labs and imaging show no emergent findings and he has a stable exam. I discussed findings with pt and I suspect musculoskeletal pain and he is comfortable with d/c and following up with pcp. Return precautions given Differential Diagnosis Differential Diagnosis: muscle spasm, kidney stone, rhabdo Medical Records Medical records reviewed: Yes I reviewed the patient's medical records. Imaging Data Radiologic Study: Attestation: I personally reviewed and interpreted this imaging study as follows: Imaging: CT Scan Radiologist's impression: PROCEDURE INFORMATION: Exam: CT Abdomen And Pelvis Without Contrast Exam date and time: 04/09/2021 3:28 PM Age: 35 years old Clinical indication: Abdominal pain; Patient HX: Right flank pain TECHNIQUE: Imaging protocol: Computed tomography of the abdomen and pelvis without contrast. COMPARISON: CT CHEST/ABD/PEL W 03/18/2021 11:28 AM FINDINGS: Lungs: The visualized lung bases are within normal limits. Heart: The visualized portions of the heart and pericardium are unremarkable. Liver: The liver is within normal limits. Gallbladder and bile ducts: The gallbladder is unremarkable. Pancreas: The pancreas is unremarkable. Spleen: The spleen is within normal limits. Adrenal glands: The adrenal glands are unremarkable. Kidneys and ureters: The kidneys are within normal limits. Stomach and bowel: Unremarkable. No obstruction. No mucosal thickening. Appendix: The appendix is visualized and is within normal limits. Intraperitoneal space: Unremarkable. No free air. No significant fluid collection. Vasculature: Unremarkable. No abdominal aortic aneurysm. Lymph nodes: No enlarged lymph nodes. Urinary bladder: The urinary bladder is somewhat distended with urine. Reproductive: The prostate and seminal vesicles are within normal limits. Bones/joints: There is a levoscoliosis of the thoracolumbar spine. There are degenerative changes of the thoracic and lumbar spines. There are slight degenerative changes of both hips. Soft tissues: Unremarkable. IMPRESSION: Osseous findings as above. Somewhat distended urinary bladder. Lab Data Lab results reviewed: Yes I reviewed the patient's lab results. HPI General Mode of arrival: ambulatory . Date/Time Provider Initiated Documentation: 04/09/21 14:47 . Limitations to Documentation: no limitations . Information obtained by: patient . History of Present Illness 35 year old M presents to the emergency department with the chief complaint of right sided back pain, described as severe, Quality is described as sharp, Patient re ports no radiation. Patient started experiencing this day(s) (1) and it has been constant. No relieving factors improve symptom(s), No exacerbating factors reported . Patient notes no other symptoms.. Patient did receive the following treatments prior to arrival, NSAID Related Data Home Medications Medication Instructions Recorded Confirmed ibuprofen 600 mg PO TID PRN 03/18/21 04/09/21 cyclobenzaprine 10 mg PO TID PRN #20 tab 03/22/21 04/09/21 gabapentin 100 mg PO TID #30 cap 03/22/21 Previous Rx's Medication Instructions Recorded cyclobenzaprine 10 mg PO TID PRN #20 tab 03/22/21 gabapentin 100 mg PO TID #30 cap 03/22/21 Allergies Allergy/AdvReac Type Severity Reaction Status Date / Time tramadol AdvReac Severe seizures Unverified 04/09/21 14:37 clarithromycin [From Biaxin] AdvReac Mild Unverified 04/09/21 14:37 diclofenac AdvReac Mild Unverified 04/09/21 14:37 General Stated Complaint: Nk/Back Pain MAURICIO: 3 Review of Systems All systems reviewed & are unremarkable except as noted in HPI and below Constitutional Constitutional: Denies chills, Denies fever(s) and Denies weakness Cardiovascular Cardiovascular: Denies chest pain and Denies dyspnea Respiratory Respiratory: Denies cough and Denies dyspnea Gastrointestinal Gastrointestinal: Denies abdominal pain, Denies nausea and Denies vomiting Musculoskeletal Musculoskeletal: Denies joint swelling Neurologic Neurologic: Denies weakness PENDING SALE TO [facility] Medical History Separation of left acromioclavicular joint, type 1 (02/12/19) Surgical History Fracture, Open Treatment tib fib Tonsillectomy Vasectomy Has also had three procedures since. Social History Smoking/Tobacco Use Status: Current-Occasional Tobacco Type: cigarettes Smoking risk assessment performed?: Yes Alcohol Intake: current Alcohol Intake frequency: holidays/special occasions only Drug use: Daily Substance use type: marijuana Current gender identity: male Do you feel safe at home: Yes Do you feel safe in your relationship?: Yes Exam Const General: no acute distress Orientation: alert HENMT Head: normal to inspection Ears: external ears normal General nose exam: external nose normal Mouth: moist mucous membranes Eyes General: appearance normal, both eyes and all related structures Neck Neck: normal visual inspection Resp Effort & Inspection: normal respiratory effort and able to speak in complete sentences Cardio Rate: regular rate GI Palpation: soft and nontender Back/Spine/Pelvis Back: CVA tenderness (right) Sacrum: no ecchymosis Skin General skin exam: no rashes or lesions noted Neuro General: patient alert and patient oriented x3 Extrem General: normal to inspection Psych Mental Status: mental status grossly normal Course Vital Signs Vital signs: Vital Signs Temperature 36.6 C 04/09/21 14:33 Pulse 85 04/09/21 14:33 Respiratory Rate 16 04/09/21 14:33 Blood Pressure 136/77 04/09/21 14:33 Pulse Oximetry 99 04/09/21 14:33 Temperature 36.6 C 04/09/21 14:33 Temperature Source Temporal Artery Scan 04/09/21 14:33 Pulse 85 04/09/21 14:33 Respiratory Rate 16 04/09/21 14:33 Respiratory Effort Non-Labored 04/09/21 14:38 Blood Pressure 136/77 04/09/21 14:33 Blood Pressure Position Sitting 04/09/21 14:33 Pulse Oximetry 99 04/09/21 14:33 Oxygen Delivery Method Room Air 04/09/21 14:33 Oxygen Flow Rate 0 04/09/21 14:33 Pain Level 7 04/09/21 14:33 PAWSS Have you Been Recently Intoxicated or Drunk Within the Last 30 days?: No Have you Ever Experienced Previous Episodes of Alcohol Withdrawal?: No Have you ever Experienced Withdrawal Seizures?: No Have you ever Experienced Delirium Tremens(DT)s?: No Have you ever undergone Alcohol Rehabilitation Treatment (i.e, inpt ot outpatient treatment programs)?: No Have you ever Experienced Blackouts?: No Have you ever Combined Alcohol with other Downers within the last 90 days?: No Have you ever Combined Alcohol with any other Substance of Abuse during the last 90 days?: No Positive Blood Alcohol level on Presentation? [PCS.BAL]: No Evidence of Increased Autonomic Activity (i.e. HR>120, tremor, sweating, agitation, nausea)?: No Result: 0
[2021-04-09] MEDS: Ketorolac 15 MG/ML VIAL IVP (15:38)
[2021-04-09] MEDS: HYDROmorphone 2 MG/ML VIAL 1 MG IVP (15:39)
[2021-04-09] MEDS: Normal Saline 50 ML (15:45)
[2021-04-09 15:49] LABS: Abs Immature Grans 0.04 10^3/uL (0.0-0.06); Absolute Basophil Count 0.05 10^3/uL (0.0-0.2); Absolute Eosinophil Count 0.33 10^3/uL (0.0-0.7); Basophils % 0.4; Eosinophils % 2.9; Immature Grans % 0.3; Lymphocytes % 21.3; MCH 32.2 pg (27.0-33.0); MCHC 33.3 % (32.0-36.0); MCV 96.6 fL (80-95); MPV 9.5 fL (8.0-11.0); Monocytes % 6.1; Nucleated RBC 0 %; Platelet Count 299 10^3/uL (130-400); RBC 4.66 10^6/uL (4.36-5.78); RDW 13.2 % (11.8-14.1); RDW-SD 47.1 fL; WBC 11.43 10^3/uL (4.4-10.8)
[2021-04-09 15:53] LABS: Absolute Lymphocyte Count 2.43 10^3/uL (1.2-3.4); Absolute Neutrophil Count 7.89 10^3/uL (1.2-6.7)
[2021-04-09 16:11] LABS: ALT 54 U/L (16-63); AST 24 U/L (15-37); Albumin 4.1 g/dL (3.4-5.0); Alkaline Phosphatase 77 U/L (46-116); Anion Gap 6.8 mmol/L (3-11); BUN 16 mg/dL (7-18); Bilirubin, Total 0.3 mg/dL (0.2-1.0); CO2 29.2 mmol/L (21.0-32.0); Calcium 8.9 mg/dL (8.5-10.1); Chloride 106 mmol/L (98-107); Creatine Kinase 86 U/L (39-308); Glucose 88 mg/dL (74-106); Lipase 157 U/L (73-393); Potassium 4.3 mmol/L (3.5-5.1); Sodium 142 mmol/L (136-145); Total Protein 7.8 g/dL (6.4-8.2)
--- NOTE | 2021-04-09 16:37 | DI.VRAD_ITS ---
PROCEDURE INFORMATION: Exam: CT Abdomen And Pelvis Without Contrast Exam date and time: 04/09/2021 3:28 PM Age: 35 years old Clinical indication: Abdominal pain; Patient HX: Right flank pain TECHNIQUE: Imaging protocol: Computed tomography of the abdomen and pelvis without contrast. COMPARISON: CT CHEST/ABD/PEL W 03/18/2021 11:28 AM FINDINGS: Lungs: The visualized lung bases are within normal limits. Heart: The visualized portions of the heart and pericardium are unremarkable. Liver: The liver is within normal limits. Gallbladder and bile ducts: The gallbladder is unremarkable. Pancreas: The pancreas is unremarkable. Spleen: The spleen is within normal limits. Adrenal glands: The adrenal glands are unremarkable. Kidneys and ureters: The kidneys are within normal limits. Stomach and bowel: Unremarkable. No obstruction. No mucosal thickening. Appendix: The appendix is visualized and is within normal limits. Intraperitoneal space: Unremarkable. No free air. No significant fluid collection. Vasculature: Unremarkable. No abdominal aortic aneurysm. Lymph nodes: No enlarged lymph nodes. Urinary bladder: The urinary bladder is somewhat distended with urine. Reproductive: The prostate and seminal vesicles are within normal limits. Bones/joints: There is a levoscoliosis of the thoracolumbar spine. There are degenerative changes of the thoracic and lumbar spines. There are slight degenerative changes of both hips. Soft tissues: Unremarkable. IMPRESSION: Osseous findings as above. Somewhat distended urinary bladder. Dictated and Authenticated by: Nito Geronimo MD. Ordering:PADMINI Herzog MD
[2021-04-09] MEDS: Lidocaine 5% Patch 1 PATCH TP (17:12)
== END 2021-04-09 17:15 | disposition home or self-care (01) ==
PROVIDERS: Emergency Provider Emergency Medicine; PCP Family Medicine
DX: M54.2 Cervicalgia (principal); M54.59 Other low back pain
CPT/HCPCS: 36415; 80053; 82550; 83690; 96374; 96375; 99284; 74176; 81003; 85025; J1885

== ENCOUNTER 2021-06-20 11:24 | Outpatient (REF) | payer MEDICAID, SELFPAY ==
--- NOTE | 2021-06-20 10:20 | SKI_PTH ---
PATIENT: Luis Harrington LOC: [facility] U#:[id number] AGE/SX: 36/M ROOM: RE06/20/[address]: Krish Sandoval : 1985 BED: DIS: 06/20/2021 SPEC #: [id number] RECD: 06/20/21 18:09 STATUS: FIORDALIZA REQ #: [id number] KEVAN: 06/20/21 10:[address]: Krish Sandoval DEPT: Surgical Specimen RECD BY: Iris Mann ENTERED: 06/20/21 18:11 SP TYPE: JEET CONKLIN DR: Yamileth Valles Tissues: 1 - SKIN BIOPSY(SHAVE/PUNCH) Procedures: SKIN LEVEL 4 Comments: [id number]
== END 2021-06-20 11:25 | disposition home or self-care (01) ==
LOC: LBN 11:24
PROVIDERS: PCP Family Medicine; Visit Provider Physician Assistant
DX: D23.62 Other benign neoplasm of skin of left upper limb, including shoulder (principal)
CPT/HCPCS: 88305

== ENCOUNTER 2021-07-12 12:35 | Outpatient (REF) | payer MEDICAID, SELFPAY ==
--- NOTE | 2021-07-12 12:10 | SKI_PTH ---
PATIENT: Luis Harrington LOC: N U#:[id number] AGE/SX: 36/M ROOM: RE07/12/[address]: Lety Diallo : 1985 BED: DIS: 07/12/2021 SPEC #: [id number] RECD: 07/12/21 12:40 STATUS: FIORDALIZA REQ #: [id number] KEVAN: 07/12/21 12:[address]: Lety Diallo DEPT: Surgical Specimen RECD BY: Iris Mann ENTERED: 07/12/21 12:41 SP TYPE: JEET CONKLIN DR: Yamileth Valles Tissues: 1 - SKIN BIOPSY(SHAVE/PUNCH) Procedures: SKIN LEVEL 4 Comments: [id number]
== END 2021-07-12 12:36 | disposition home or self-care (01) ==
LOC: LBN 12:35
PROVIDERS: PCP Family Medicine; Visit Provider Surgery
DX: D22.62 Melanocytic nevi of left upper limb, including shoulder (principal)
CPT/HCPCS: 88305

== ENCOUNTER 2021-09-27 21:46 | Emergency (ER) | payer MEDICAID, SELFPAY ==
[2021-09-27 21:53] VITALS: BP 142/88; PULSE 85; RESP 16; TEMP 36.7; O2SAT 97
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
[2021-09-27] MEDS: Cephalexin 500 MG CAP PO (22:08)
[2021-09-27] MEDS: Cephalexin 500 MG CAP, 2 CAPS/BTL PO (22:08)
== END 2021-09-27 22:27 | disposition home or self-care (01) ==
PROVIDERS: Emergency Provider Registered Nurse Emergency; PCP Physician Assistant
DX: S61.236A Puncture wound without foreign body of right little finger without damage to nail, initial encounter (principal); W27.8XXA Contact with other nonpowered hand tool, initial encounter
CPT/HCPCS: 29130; 90471; 99284; 99283

== ENCOUNTER → 2021-10-18 01:39 | Outpatient (CLI) | payer MEDICAID, SELFPAY ==
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
== END ==
PROVIDERS: PCP Physician Assistant; Visit Provider Physician Assistant
DX: R93.0 Abnormal findings on diagnostic imaging of skull and head, not elsewhere classified (principal)
CPT/HCPCS: 71250

== ENCOUNTER 2021-11-05 00:47 | Outpatient (CLI) | payer MEDICAID, SELFPAY ==
--- NOTE | 2021-11-05 09:17 | DI.RAD_ITS ---
Exam(s) XR HIP RT COMPLETE AP PELVIS EXAM: XR HIP RT COMPLETE AP PELVIS INDICATION: RT HIP PAIN, M25.551. COMPARISON: No exams were available for comparison TECHNIQUE: 2D digital imaging was performed. Two views. FINDINGS: Hip joint spaces are well maintained. There is mild spurring at the superior acetabula bilaterally. No tendon or joint space calcifications are seen. The SI joints are unremarkable as visualized. IMPRESSION: Minimal degenerative changes of both hips. DATA REPOSITORY: RADIATION DOSE DELIVERED:
== END 2021-11-05 01:07 ==
PROVIDERS: PCP Physician Assistant; Visit Provider Physician Assistant
DX: M25.551 Pain in right hip (principal)
CPT/HCPCS: 73502

== ENCOUNTER 2021-12-07 19:28 | Emergency (ER) | payer MEDICAID, SELFPAY ==
[2021-12-07 19:34] VITALS: BP 118/77; PULSE 66; RESP 18; TEMP 37.3; O2SAT 99
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
[2021-12-07 20:34] LABS: HCT 42.6 % (40.0-50.0); HGB 14.7 g/dL (13.5-17.5); MCH 31.5 pg (27.0-33.0); MCHC 34.5 % (32.0-36.0); MCV 91 fL (80-95); Platelet Count 237 10^3/uL (130-400); RBC 4.66 10^6/uL (4.36-5.78); RDW 12.8 % (11.8-14.1); RDW-SD 42.7 fL; WBC 7.76 10^3/uL (4.4-10.8)
[2021-12-07 20:36] LABS: ALT 20 U/L (16-63); AST 17 U/L (15-37); Albumin 4.2 g/dL (3.4-5.0); Alkaline Phosphatase 67 U/L (46-116); Anion Gap 9.9 mmol/L (3-11); BUN 19 mg/dL (7-18); Bilirubin, Total 0.3 mg/dL (0.2-1.0); CO2 25.1 mmol/L (21.0-32.0); CREATININE 1.2 mg/dL (0.70-1.30); Calcium 9.1 mg/dL (8.5-10.1); Chloride 103 mmol/L (98-107); Glucose 85 mg/dL (74-106); Potassium 3.5 mmol/L (3.5-5.1); Sodium 138 mmol/L (136-145); Total Protein 7.4 g/dL (6.4-8.2)
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
[2021-12-07 22:03] VITALS: BP 134/84; PULSE 61; RESP 18; O2SAT 98
== END 2021-12-07 22:05 | disposition home or self-care (01) ==
PROVIDERS: Emergency Provider Emergency Medicine; PCP Physician Assistant
DX: S80.02XA Contusion of left knee, initial encounter (principal); S16.1XXA Strain of muscle, fascia and tendon at neck level, initial encounter; V29.88XA Motorcycle rider (driver) (passenger) injured in other specified transport accidents, initial encounter; R07.89 Other chest pain
CPT/HCPCS: 73562; 74177; 80053; 85027; 99285; 70450; 71260; 72125; 99284

== ENCOUNTER 2021-12-17 14:08 | Emergency (ER) | payer MEDICAID, SELFPAY ==
[2021-12-17] VITALS (39 sets, daily range): BP systolic 104–148; BP diastolic 69–120; PULSE 56–92; RESP 14–18; TEMP 36.9; O2SAT 95–99
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
[2021-12-17] MEDS: Normal Saline 1,000 ML 1000 ML IV (15:28)
[2021-12-17] MEDS: Prochlorperazine 10 MG/2 ML VIAL IVP (15:29)
[2021-12-17] MEDS: Ondansetron 4 MG/2 ML VIAL IVP (15:29)
[2021-12-17] MEDS: Acetaminophen 500 MG TAB 1000 MG PO (15:30)
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
== END 2021-12-17 17:18 | disposition home or self-care (01) ==
PROVIDERS: Emergency Provider Student in an Organized Health Care Education/Training Program; PCP Physician Assistant
DX: S09.8XXA Other specified injuries of head, initial encounter (principal); F07.81 Postconcussional syndrome; M25.561 Pain in right knee; V19.9XXA Pedal cyclist (driver) (passenger) injured in unspecified traffic accident, initial encounter
CPT/HCPCS: 36415; 96361; 96374; 96375; 99284; 70450; 73700; J0780; J2405

== ENCOUNTER 2022-01-02 13:29 | Outpatient (CLI) | payer MEDICAID, SELFPAY ==
--- NOTE | 2022-01-02 13:15 | DI.RAD_ITS ---
Exam(s) XR HAND RT COMPLETE EXAM: XR HAND RT COMPLETE CLINICAL HISTORY: follow up - continued pain TECHNIQUE: COMPARISON: No exams were available for comparison FINDINGS: Three views were obtained. No bony or soft tissue abnormality seen. Alignment appears within normal limits. IMPRESSION: RADIATION DOSE DELIVERED: Total DLP
== END 2022-01-02 13:30 | disposition home or self-care (01) ==
LOC: DIORS 13:29
PROVIDERS: PCP Physician Assistant; Referring Provider Physician Assistant; Visit Provider Physician Assistant Surgical
DX: M79.641 Pain in right hand (principal)
CPT/HCPCS: 73130

== ENCOUNTER → 2022-01-24 00:51 | Outpatient (CLI) | payer MEDICAID, SELFPAY ==
--- NOTE | 2022-01-24 11:22 | DI.MRI_ITS ---
Exam(s) MR LOWER JOINT LT WO EXAM: MR LOWER JOINT LT WO CLINICAL HISTORY: LT KNEE PAIN, M25.562 TECHNIQUE: Multiplanar multisequence MRI of the knee was performed. COMPARISON: CR,XR XR KNEE LT 3V AP,LAT,SIMONE from 12/07/2021 FINDINGS: EFFUSION: There is a minimal amount of increased joint fluid. There is no large joint effusion. The re is no Coyne cyst in the popliteal fossa. MARROW:There is prominent bone contusion signal on both sides the tibial plateau and extending into t he proximal tibial metaphysis but without distinct fracture lines. There is also significant subarti cular bone edema in the medial femoral condyle. This does not extend into the distal femoral metaphy sis. There is sparing of the lateral femoral condyle and also no signal abnormality in the fibular h ead and neck. There are no significant osseous lesions. PATELLOFEMORAL COMPARTMENT: The quadriceps tendon is intact. The patellar ligament is intact. Small focus of increased intraosseous signal noted in the inferior-medial aspect of the patella but withou t an avulsed fragment at this level. There is no significant thinning of the retropatellar cartilage. No evidence of fissure nor signific ant chondral defect. No osteochondral defect at this level.There is no intraosseous signal to sugges t recent patellar dislocation. There are no patellar retinacular tears. CRUCIATE LIGAMENTS: The anterior cruciate ligament is intact.The posterior cruciate ligament is intac t. MEDIAL COMPARTMENT/MEDIAL MENISCUS: There are no tears of the medial meniscus evident.No meniscal con tusion signal, this despite the prominent amount of intraosseous edema both above and below this leve l no meniscocapsular separation.. There are no chondral defects, osteochondral defects, subarticular marrow edema, nor osteophytes evid ent. MEDIAL COLLATERAL LIGAMENT: Intact LATERAL COMPARTMENT/LATERAL MENISCUS: There is no evidence of lateral meniscal tear. No significant meniscal contusion signalthere are no chondral defects, osteochondral defects, subarticular marrow ed chito, nor osteophytes evident. ILIOTIBIAL BAND: Intact LATERAL COLLATERAL LIGAMENT COMPLEX: The fibular collateral ligament is intact. The biceps femoris t endon is intact.Popliteus muscle and tendon are intact. IMPRESSION: 1. The main finding here is prominent bone contusion signal in both sides the tibial plateau which is continuous into both sides of the proximal tibial metaphysis as well as subarticular bone edema in t he outer half of the medial femoral condyle. There is relative sparing of the lateral femoral condyl e and fibular head and neck. 2. There are no meniscal tears nor collateral ligament tears and there are no cruciate ligament tears . 3. No evidence of chondral defects nor osteochondral defects. No evidence of meniscal contusion. 4. Small focus of bone edema in the inferior-medial aspect of the patella also evident. DATA REPOSITORY:
== END ==
PROVIDERS: PCP Physician Assistant; Visit Provider Physician Assistant
DX: S80.02XA Contusion of left knee, initial encounter (principal); S80.01XA Contusion of right knee, initial encounter; X58.XXXA Exposure to other specified factors, initial encounter; R60.0 Localized edema
CPT/HCPCS: 73721

== ENCOUNTER 2022-02-27 09:37 | Outpatient (CLI) | payer MEDICAID, SELFPAY ==
--- NOTE | 2022-02-27 09:30 | DI.RAD_ITS ---
Exam(s) XR THUMB RT EXAM: XR THUMB RT CLINICAL HISTORY: continued pain. TECHNIQUE: 2D digital imaging was performed. COMPARISON: CR XR HAND RT COMPLETE from 01/02/2022 FINDINGS: 3 views No evidence of fracture or dislocation. No osseous lesions nor erosions. No degenerative changes. Bone density normal. IMPRESSION: No significant radiograph findings in the thumb. DATA REPOSITORY: RADIATION DOSE DELIVERED:
== END 2022-02-27 09:38 | disposition home or self-care (01) ==
LOC: DIORS 09:37
PROVIDERS: PCP Physician Assistant; Referring Provider Physician Assistant; Visit Provider Physician Assistant Surgical
DX: S63.641D Sprain of metacarpophalangeal joint of right thumb, subsequent encounter (principal); X58.XXXD Exposure to other specified factors, subsequent encounter
CPT/HCPCS: 73140

== ENCOUNTER 2022-03-12 10:49 | Outpatient (CLI) | payer MEDICAID, SELFPAY ==
--- NOTE | 2022-03-12 10:30 | DI.RAD_ITS ---
Exam(s) XR SHOULDER RT COMPLETE 2+V EXAM: XR SHOULDER RT COMPLETE 2+V CLINICAL HISTORY: right shoulder. TECHNIQUE: 2D digital imaging was performed of the right shoulder. Two images were obtained. AP an d axillary views were obtained. COMPARISON: No exams were available for comparison FINDINGS: BONES: No acute fracture is present. No bony destructive lesion is seen. JOINTS: No dislocation present. There are mild degenerative changes at the acromioclavicular joint. The glenohumeral joint is unremarkable. SOFT TISSUE: Normal. IMPRESSION: Mild degenerative changes of the right AC joint. DATA REPOSITORY: RADIATION DOSE DELIVERED:
== END 2022-03-12 10:50 | disposition home or self-care (01) ==
LOC: DIORS 10:49
PROVIDERS: PCP Physician Assistant; Referring Provider Physician Assistant; Visit Provider Student in an Organized Health Care Education/Training Program
DX: M25.511 Pain in right shoulder; M19.011 Primary osteoarthritis, right shoulder
CPT/HCPCS: 73030

== ENCOUNTER → 2022-03-20 01:01 | Outpatient (CLI) | payer MEDICAID, SELFPAY ==
--- NOTE | 2022-03-20 06:30 | DI.MRI_ITS ---
Exam(s) MR UPPER EXTREMITY RT WO EXAM: MR UPPER EXTREMITY RT WO CLINICAL HISTORY: CONTINUED R HAND PAIN,sprain ulnar collateral ligament,[id number] TECHNIQUE: Multiplanar multisequence MRI was performed. COMPARISON: CR XR THUMB RT from 02/27/2022 FINDINGS: MARROW:There is no evidence of fracture, nor prominent bone contusion. Bone contusion, nor avascular necrosis. There are no significant osseous lesions. EXTRAMUSCULAR SOFT TISSUES: There is a tear of the ulnar collateral ligament of the metacarpophalange al joint of the thumb. The tear is located 3 millimeters proximal to the insertional aspect on the m edial aspect of the proximal phalanx. There does not appear to be obvious interposition of the adduc tor pollicis. Lateral collateral ligament is intact. No prominent joint effusion. First carpometacarpal joint appears unremarkable. Interphalangeal joint of the thumb also appears un remarkable. IMPRESSION: 1. There is a tear of the ulnar collateral ligament as described above. 2. There is no obvious Stener lesion. 3. No fractures evident. No prominent bone contusion. DATA REPOSITORY:
== END ==
PROVIDERS: PCP Physician Assistant; Visit Provider Student in an Organized Health Care Education/Training Program
DX: M79.641 Pain in right hand; S63.641A Sprain of metacarpophalangeal joint of right thumb, initial encounter; X58.XXXA Exposure to other specified factors, initial encounter
CPT/HCPCS: 73218

== ENCOUNTER 2022-04-08 14:08 | Outpatient (REF) | payer MEDICAID, SELFPAY ==
[2022-04-08 16:36] LABS: FREE T4 0.96 ng/dL (0.76-1.46); TSH 0.94 uIU/mL (0.36-3.74)
== END 2022-04-08 14:09 | disposition home or self-care (01) ==
LOC: NCHCN 14:08
PROVIDERS: PCP Physician Assistant; Visit Provider Physician Assistant
DX: R63.4 Abnormal weight loss (principal)
CPT/HCPCS: 84439; 84443